=== PATIENT | female | born 1975 | race Caucasian/White ===

== ENCOUNTER 2020-04-29 16:20 | Emergency (ER) | payer OTHER, SELFPAY ==
--- NOTE | ~2020-04-29 | XR_ITS ---
EXAMINATION: XR foot LT min 3V DATE: 04/29/2020 17:12 INDICATION: Left foot injury and pain. TECHNIQUE: 4 views of left foot were obtained. COMPARISON: None. FINDINGS: There is moderate hallux valgus. No fracture. There is mild osteoarthritis of first metatar sophalangeal joint. There are enthesophytes at the posterior and plantar aspects of calcaneal tuberos ity. IMPRESSION: 1. Moderate hallux valgus. 2. Mild osteoarthritis of first metatarsophalangeal joint. Reviewed, dictated and finalized at location A. [employer] STRATEGIST
[2020-04-29 16:27] VITALS: BP 118/79; PULSE 73; RESP 20; TEMP 36.7; O2SAT 99
--- NOTE | 2020-04-29 16:29 | ED.GENADULT ---
HPI - General Adult General Chief complaint: Extremity Injury, Lower Stated complaint: left foot injury Time Seen by Provider: 04/29/20 16:30 Source: patient Mode of arrival: ambulatory Limitations: no limitations History of Present Illness HPI narrative: 45-year-old female patient presents to the [facility] with complaints of left foot pain. Patient states that about 1030 this morning she tripped over a baby gate to get her dog and states she landed on either a toy or to that dog tree. Patient states that since then she has not been able to bear much weight onto the left foot. Patient states she has been elevating and icing it but denies any Tylenol or ibuprofen. Related Data Home Medications Medication Instructions Recorded Confirmed Bifidobacterium infantis [Align] 4 mg PO DAILY 04/29/20 04/29/20 docusate sodium 100 mg PO BID 04/29/20 04/29/20 nortriptyline 50 mg PO HS 04/29/20 04/29/20 pantoprazole 40 mg PO QAM 04/29/20 04/29/20 Allergies Allergy/AdvReac Type Severity Reaction Status Date / Time ciprofloxacin Allergy Unknown Unknown Verified 04/29/20 16:44 methylprednisolone Allergy Unknown Unknown Verified 04/29/20 16:44 metronidazole [From Flagyl] Allergy Unknown Unknown Verified 04/29/20 16:43 Sulfa (Sulfonamide Allergy Unknown Unknown Verified 04/29/20 16:45 Antibiotics) trimethoprim Allergy Unknown Unknown Verified 04/29/20 16:45 Review of Systems Review of Systems: Narrative: CONSTITUTIONAL: Denies fever, chills, or sweats. EYES: Denies visual changes, redness, or discharge. ENT: Denies rhinorrhea, congestion, sore throat, or otalgia. CARDIOVASCULAR: Denies chest pain, palpitations, or edema. RESPIRATORY: Denies cough or dyspnea. GASTROINTESTINAL: Denies abdominal pain, nausea, vomiting, or diarrhea. GENITOURINARY: Denies dysuria or hematuria. SKIN: Denies rash or itching. MUSCULOSKELETAL: Denies back pain, joint pain, or myalgia. Positive left foot pain NEUROLOGIC: Denies headache, numbness, or weakness. PSYCHIATRIC: Denies anxiety or depression. [facility] Past Medical History Medical History (Updated 04/29/20 @ 17:24 by NORIS Rice) Colitis Social History Social History (Updated 04/29/20 @ 16:30 by NORIS Rice) Smoking status: Current every day smoker Comments At the time of my signature I agree with nursing past medical history, surgical, social, and family history. There is no relevant family history pertinent to the presenting complaint. Exam Narrative: Exam Narrative: GENERAL: Well-appearing, well-nourished, and in no acute distress. HEAD: Normocephalic, atraumatic. EYES: PERRLA and EOMI. ENT: Nares clear, no rhinorrhea or epistaxis. Mucous membranes moist. NECK: Supple. No lymphadenopathy CHEST: Clear to auscultation. No respiratory distress. HEART: Regular rate and rhythm. No murmur heard. Normal peripheral pulses. ABDOMEN: Soft, nontender, nondistended, normal active bowel sounds. EXTREMITIES: Patient unable to bear weight and ambulate on left foot without pain. No surface trauma, ecchymosis, erythema, lesions, ulcers or break in skin integrity. The L foot is without obvious asymmetry or deformity when compared to the R foot. No bony step-off, tender on palpation over the lateral side of the foot and over the sole of the fourth and fifth toes. Sensation intact. Distal motor and neurovascular status are intact SKIN: Warm, dry, no rash. NEURO: No focal deficits. Alert and oriented x3. Course Reevaluation(s) Reevaluation #1: Reevaluated patient after x-ray resulted. Notified her that the x-ray is negative for any acute fractures. Discussed with patient that we will go ahead and wrap her foot with an Jose wrap as well as put her for some crutches today. Encourage patient to continue to elevate it, ice it and may take Tylenol and ibuprofen as needed for pain. Patient verbalized understanding denies any other questions or concerns at this time. Date: 04/29/20 Time: 17:22
== END 2020-04-29 17:30 | disposition home or self-care (01) ==
PROVIDERS: Emergency Provider Nurse Practitioner Family
DX: S93.602A Unspecified sprain of left foot, initial encounter (principal); W18.02XA Striking against glass with subsequent fall, initial encounter; F17.200 Nicotine dependence, unspecified, uncomplicated
CPT/HCPCS: 73630; 99213; G0463

== ENCOUNTER 2022-07-11 11:08 | Emergency (ER) | payer OTHER, SELFPAY ==
[2022-07-11 11:22] VITALS: BP 125/77; PULSE 109; RESP 16; TEMP 37.6; O2SAT 100
--- NOTE | 2022-07-11 12:54 | ED.GENADULT ---
HPI - General Adult General Chief complaint: Upper Respiratory Infection Stated complaint: Sore Throat Source: patient Mode of arrival: ambulatory Limitations: no limitations History of Present Illness HPI narrative: PATIENT PRESENTS FOR EVALUATION OF SORE THROAT SINCE YESTERDAY. REPORTS SOME CHILLS, FEVER, POSTNASAL DRAINAGE, BODY ACHES, NONPRODUCTIVE COUGH. NO NAUSEA, VOMITING, DIARRHEA. HER CHILD AND GRANDCHILD BOTH RECENTLY HAD STREP. SHE USES AN ELECTRONIC CIGARETTE. SHE IS NOT TAKING ANY MEDICATION TO ASSIST WITH HER SYMPTOMS. NO ADDITIONAL COMPLAINTS OR CONCERNS. Related Data Home Medications Medication Instructions Recorded Confirmed nortriptyline 25 mg capsule 50 mg PO HS 04/29/20 07/11/22 pantoprazole 40 mg tablet,delayed 40 mg PO QAM 04/29/20 07/11/22 release Allergies Allergy/AdvReac Type Severity Reaction Status Date / Time ciprofloxacin Allergy Unknown Unknown Verified 07/11/22 11:27 methylprednisolone Allergy Unknown Unknown Verified 07/11/22 11:27 metronidazole [From Flagyl] Allergy Unknown Unknown Verified 07/11/22 11:27 Sulfa (Sulfonamide Allergy Unknown Unknown Verified 07/11/22 11:27 Antibiotics) trimethoprim Allergy Unknown Unknown Verified 07/11/22 11:27 Review of Systems Review of Systems: CONSTITUTIONAL: REPORTS FEVER AND CHILLS. EYES: DENIES VISUAL CHANGES, REDNESS, OR DISCHARGE. ENT: REPORTS POSTNASAL DRAINAGE AND SORE THROAT CARDIOVASCULAR: DENIES CHEST PAIN, PALPITATIONS, OR EDEMA. RESPIRATORY:REPORTS OCCASIONAL COUGH. DENIES SOB GASTROINTESTINAL: DENIES ABDOMINAL PAIN, NAUSEA, VOMITING, OR DIARRHEA. GENITOURINARY: DENIES DYSURIA OR HEMATURIA. SKIN: DENIES RASH OR ITCHING. MUSCULOSKELETAL: REPORTS GENERALIZED BODY ACHES NEUROLOGIC: DENIES HEADACHE, NUMBNESS, DIZZINESS, OR WEAKNESS. PSYCHIATRIC: DENIES ANXIETY OR DEPRESSION. [facility] Past Medical History Medical History Colitis Surgical History Surgical History No pertinent past surgical history Family History Family History Mother Family history non-contributory Social History Social History Smoking status: Current every day smoker Tobacco type: e-cigarettes/vaping Substance use: never Gender identity (if verbalized by the patient): Female Sexual Orientation (if Verbalized by the Patient): Straight or Heterosexual Spiritual care concerns: No Exam Narrative: GENERAL: WELL-APPEARING, WELL-NOURISHED, AND IN NO ACUTE DISTRESS. HEAD: NORMOCEPHALIC, ATRAUMATIC. EYES: PERRLA AND EOMI. ENT: NARES CLEAR, NO RHINORRHEA OR EPISTAXIS. MUCOUS MEMBRANES MOIST. POSTERIOR PHARYNGEAL ERYTHEMA WITHOUT EXUDATE. UVULA IS MIDLINE. BILATERAL TMS PEARLY SYED NONBULGING NECK: SUPPLE. NO ADENOPATHY OR MASSES. NO CAROTID BRUITS OR JVD CHEST: CLEAR TO AUSCULTATION. NO RESPIRATORY DISTRESS. NO WHEEZES RALES OR RHONCHI HEART: REGULAR RATE AND RHYTHM. NO MURMUR HEARD. NORMAL PERIPHERAL PULSES. ABDOMEN: SOFT, NONTENDER, NONDISTENDED, NORMAL ACTIVE BOWEL SOUNDS. EXTREMITIES: NORMAL RANGE OF MOTION. NO EDEMA. SKIN: WARM, DRY, NO RASH. NEURO: NO FOCAL DEFICITS. ALERT AND ORIENTED X3. PSYCH: NORMAL MOOD AND AFFECT. Course Course Emergency Course: THIS IS A 47-YEAR-OLD FEMALE WHO PRESENTED FOR EVALUATION OF SORE THROAT SINCE YESTERDAY. RAPID STREP POSITIVE. TREAT WITH AMOXICILLIN. INCREASE HYDRATION. [id number] AGENTS FOR SYMPTOM MANAGEMENT. FOLLOW UP WITH PRIMARY PROVIDER. GO TO THE ER FOR WORSENING SYMPTOMS. PATIENT IN AGREEMENT WITH PLAN OF CARE Level of Care: Express Care Visit Vital Signs Vital signs: Vital Signs Temperature 37.6 C H 07/11/22 11:22 Pulse Rate 109 H 07/11/22 11:22 Respiratory Rate 16 07/11/22 11:22 Blood Pressure 125/77 07/11/22 11:22 Pulse
== END 2022-07-11 12:57 | disposition home or self-care (01) ==
PROVIDERS: Emergency Provider Nurse Practitioner
DX: J02.0 Streptococcal pharyngitis (principal); F17.290 Nicotine dependence, other tobacco product, uncomplicated
CPT/HCPCS: 87880; 99213; G0463